=== PATIENT | male | born 1965 | race Caucasian/White ===

== ENCOUNTER 2019-11-14 11:30 | Emergency (ER) | payer BC ==
[~2019-11-14] VITALS: Ht 182.9 cm; Wt 106.0 kg
--- NOTE | 2019-11-14 12:10 | NUR ---
PT WITH C/O SOB AND COUGHING UP BLOOD THIS AM. PT DENIES HEMATAEMESIS, EPISTAXIS. PT STATES HE IS SURE HE IS COUGHING UP BLOOD FROM HIS LUNGS. PT SATING 97 RA AT THIS TIME. PT DENIES FEVER/BODY ACHES. BP, CONT PULSE, CARD MONTIOR. PIV INITIATED, PT TO GO TO CT
[2019-11-14 12:19] LABS: BASOPHILS # (AUTO) 0.05 x10^3/uL (0-0.1); BASOPHILS % (AUTO) 1 % (0-1); EOSINOPHILS # (AUTO) 0.18 x10^3/uL (0-0.4); EOSINOPHILS % (AUTO) 3 % (1-7); LYMPHOCYTES # (AUTO) 2.65 x10^3/uL (1-3.4); LYMPHOCYTES % (AUTO) 37 % (22-44); MD NO; MEAN CORPUSCULAR HEMOGLOBIN 31.8 pg (27.5-34.5); MEAN CORPUSCULAR HGB CONC 32.8 g/dL (33.2-36.2); MEAN CORPUSCULAR VOLUME 97.2 fL (81-97); MEAN PLATELET VOLUME 9.1 fL (7.4-10.4); MONOCYTES # (AUTO) 0.51 x10^3/uL (0.2-0.8); MONOCYTES % (AUTO) 7 % (2-9); NEUTROPHILS # (AUTO) 3.85 x10^3/uL (1.8-6.8); NEUTROPHILS % (AUTO) 53 % (42-75); PLATELET COUNT 334 x10^3/uL (130-400); RED CELL DISTRIBUTION WIDTH 13.2 % (9.4-14.8)
[2019-11-14 12:27] LABS: ANION GAP 9 mmol/L (5-15); CALCIUM 8.4 mg/dL (8.5-10.1); CHLORIDE 107 mmol/L (98-107); CREATININE 1.19 mg/dL (0.7-1.3)
--- NOTE | 2019-11-14 13:28 | NUR ---
PT RESTING ON SULEMA KUO, AWAITING CT. VERBALIZED NO NEEDS AT THIS TIME
--- NOTE | 2019-11-14 13:53 | NUR ---
TASK RN: PT TO IMAGING.
--- NOTE | 2019-11-14 13:58 | NUR ---
PT BACK FROM CT AT THIS TIME. NAD NOTED
[2019-11-14] MEDS ORDERED: OMNIPAQUE 350 MG/ML, 75ML BOTTLE ONE (14:07)
[2019-11-14 14:30] VITALS: BP 172/99
== END 2019-11-14 15:14 | disposition home or self-care (01) ==
LOC: ED 13:16
DX: R04.2 Hemoptysis (principal); I10 Essential (primary) hypertension; R94.31 Abnormal electrocardiogram [ECG] [EKG]
CPT/HCPCS: 36415; 71275; 80048; 85025; 93005; 99285; Q9967